=== PATIENT | male | born 1960 | race Caucasian/White ===

== ENCOUNTER 2019-05-27 01:50 | Emergency (ER) | payer OTHER ==
[2019-05-27] MEDS ORDERED: Haloperidol Lactate 5 MG/ML SDV IM ONE (01:58)
[2019-05-27] MEDS ORDERED: LORazepam 2 MG/ML SDV IM ONE (01:59)
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
== END 2019-05-27 03:17 | disposition short-term general hospital (02) ==
LOC: VM.ED 01:50
DX: F29 Unspecified psychosis not due to a substance or known physiological condition (principal)
CPT/HCPCS: 96372; 99285; J1630; J2060

== ENCOUNTER 2021-04-25 17:50 | Emergency (ER) | payer OTHER ==
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
[2021-04-25 18:55] LABS: CHLORIDE,CL 106 mmol/L (98-107); SODIUM,NA 142 mmol/L (136-145)
--- NOTE | 2021-04-29 19:27 | PCM.SN.2 ---
- Free Text/Narrative Note: Patient was called to be told her hepatitis C virus antibodies was <0.1, Hepb SAB were 65.7 showing immunity, hiv was non reactive. He is talking HIV prep and still has not been able to secure testing on source patient. awaiting enterprise applications manager order.
== END 2021-04-25 19:55 | disposition home or self-care (01) ==
LOC: VM.ED 17:50
DX: S01.5 Open wound of lip and oral cavity (principal); I10 Essential (primary) hypertension; Z79.899 Other long term (current) drug therapy; W50 Accidental hit, strike, kick, twist, bite or scratch by another person; Y99.0 Civilian activity done for income or pay
CPT/HCPCS: 36415; 80053; 86317; 86803; 87389; 99283